=== PATIENT | female | born 1970 | race Caucasian/White ===

== ENCOUNTER 2018-08-03 10:09 | Emergency (ER) | payer OTHER ==
[~2018-08-03] VITALS: Ht 157.5 cm; Wt 62.6 kg
== END 2018-08-03 16:24 | disposition home or self-care (01) ==
LOC: ER 10:09
DX: R10.2 Pelvic and perineal pain (principal)

== ENCOUNTER 2020-05-11 01:18 | Outpatient (CLI) | payer OTHER | END 2020-05-11 13:20 | disposition home or self-care (01) | LOC: PPH VACUNA 01:18 | DX: Z23 Encounter for immunization (principal) ==